=== PATIENT | male | born 1995 | race Caucasian/White ===

== ENCOUNTER 2021-09-08 08:00 | Observation (INO) ==
[2021-09-08 08:18] VITALS: BMI 34.8
--- NOTE | 2021-09-08 08:57 | DR.ABDMALE ---
HPI Time seen Time Seen by Provider: 09/08/21 08:46 PCP Primary Care Physician: Shu HPI comment HPI Comment: Acccording to pt he was well before yesterday .Experienced feeling of bloating with discomfort .gradual in onset and has persisted since then .Has had loose stools associated with it without watery or bloody stools stools .Has not eaten anything unusal .No one at home with similar symptoms.Had similar problem over 2 weks ago got better on its own .Here to have himself checked .When stands and walk ,experiences pain in the lower belly Complaint Chief Complaint Doctors Comments: abdominal pain Chief Complaint:: Pt c/o ruq abd pain since yesterday. He reports three episodes of diarrhea this am. Pt states pain worsens with eating. He reports loose stool for an extended period of time. COVID-19 Coronavirus risk:travel/contact w/high risk person: No Has patient experienced Coronavirus symptoms: No Reviewed Nurses Notes Review: Yes Mode of arrival Mode of Arrival: Ambulatory Timing Onset of Chief Complaint: 09/07/21 Came on: Gradually Location Location: RUQ Severity Severity: Moderate Quality Quality: Other (bloated feeling ) Context History of: None Modifying factors Worsening Factors: Position Improving Factors: Nothing Associated signs and symptoms Associated Signs and Symptoms: Diarrhea PMH PMH Past Medical History: No Past Medical History: Hypertension Past Surgical History: Yes Surgical History: Ortho Surgery Past Surgical History Comment: hernia repair Family History History of Family Medical Conditions: Yes Family Medical History: Diabetes Mellitus and Hypertension Social History Does patient currently use any type of tobacco product: No Have you used tobacco products in the last 12 months: No Type of Tobacco Use: None Does any household member use tobacco: No Alcohol Use: None Do you use any recreational Drugs:: No Lives With: Family Lives Where: Home Travel Risk Coronavirus risk:travel/contact w/high risk person: No Has patient experienced Coronavirus symptoms: No Infectious screening In the last 2 months have you had wt loss of >10#?: NO Have you had fever, night sweats or hemotysis?: No Have you traveled outside the country in the last 6 months?: No Isolation: Standard ROS Review of Systems Constitutional: No Symptoms Reported Eyes: No Symptoms Reported ENTM: No Symptoms Reported Respiratoy: No Symptoms Reported Cardiovascular: No Symptoms Reported Gastrointestinal/Abdominal: See HPI Genitourinary: No Symptoms Reported Neurological: No Symptoms Reported Musculoskeletal: No Symptoms Reported PE Vital Signs Vital Signs: Temp Pulse Resp BP BP Pulse Ox 09/08/21 10:42 16 09/08/21 08:14 97.0 F L 87 18 130/83 97 12/19/17 13:53 148/80 148/80 Head Head Exam: Normal Inspection, Atraumatic and Normocephalic Eyes Eye exam: Normal Appearance, PERRL and EOMI ENT ENT Exam: Normal Oropharynx and Mucous Membranes Moist Neck Neck Exam: Normal Inspection and Full ROM Chest Chest Inspection: Normal Inspection and Symmetric Chest Wall Rise Respiratory Respiratory Exam: Normal Lung Sounds Bilat Respiratory Exam: Bilateral: Clear to Auscultation Cardiovascular Cardiovascular Exam: +S1 and +S2 Abdominal Exam Abdominal Exam: Soft and Tenderness Abdominal Tenderness: RUQ, RLQ and Other (robsing pos but uncomfortable feeling on palpation RUQ.Burnham sign neg) MDM Differential Diagnosis Differential Diagnosis: Appendicitis, Cholcystitis, Cholelethiasis, Constipation, Gastroenteritis and Urolithiasis COURSE Treatment Treatment: cbc,cmp,u/a CTabdomen and pelvids with IV contrast ROR Labs Reviewed Laboratory Results Reviewed?: Yes Result Diagrams: 09/08/21 08:39 09/08/21 08:39 Laboratory: WBC 11.0 X10^3/uL (3.6-10.0) H 09/08/21 08:39 RBC 4.90 X10^6/uL (4.7-6.0) 09/08/21 08:39 Hgb 14.7 g/dL (13.5-18.0) 09/08/21 08:39 Hct 42.7 % (42.0-54.0) 09/08/21 08:39 MCV 87.1 fL (80.0-100.0) 09/08/21 08:39 MCH 29.9 pg (27.0-34.0) 09/08/21 08:39 MCHC 34.3 g/dL (33.0-35.0) 09/08/21 08:39 RDW 13.6 % (11.6-16.5) 09/08/21 08:39 Plt Count 267 X10^3/uL (150.0-450.0) 09/08/21 08:39 MPV 8.7 fL (7.4-11.0) 09/08/21 08:39 Neut % (Auto) 76.2 % (42.0-75.0) H 09/08/21 08:39 Lymph % (Auto) 14.6 % (21.0-51.0) L 09/08/21 08:39 [place] % (Auto) 7.4 % (0.0-13.0) 09/08/21 08:39 Eos % (Auto) 1.1 % (0.9-2.9) 09/08/21 08:39 Baso % (Auto) 0.7 % (0.2-1.0) 09/08/21 08:39 Neut # (Auto) 8.4 x10^3/uL (2.2-4.8) H 09/08/21 08:39 Lymph # (Auto) 1.6 X10^3/uL (1.3-2.9) 09/08/21 08:39 [place] # (Auto) 0.8 x10^3/uL (0.3-0.8) 09/08/21 08:39 Eos # (Auto) 0.1 x10^3/uL (0.0-0.2) 09/08/21 08:39 Baso # (Auto) 0.1 X10^3/uL (0.0-0.1) 09/08/21 08:39 Absolute Nucleated RBC 0.0 /100WBC 09/08/21 08:39 Sodium 140 mmol/L (136-145) 09/08/21 08:39 Corrected Sodium TNP 09/08/21 08:39 Potassium 4.4 mmol/L (3.5-5.1) 09/08/21 08:39 Chloride 104 mmol/L (98-107) 09/08/21 08:39 Carbon Dioxide 28.3 mmol/L (21-32) 09/08/21 08:39 BUN 14 mg/dL (7-18) 09/08/21 08:39 Creatinine 0.87 mg/dL (0.70-1.30) 09/08/21 08:39 Est GFR (MDRD) Af Amer > 60 (>60) 09/08/21 08:39 Est GFR (MDRD) Non-Af > 60 (>60) 09/08/21 08:39 Glucose 99 mg/dL (65-99) 09/08/21 08:39 Calcium 8.8 mg/dL (8.5-10.1) 09/08/21 08:39 Corrected Calcium TNP 09/08/21 08:39 Total Bilirubin 0.60 mg/dL (0.2-1.0) 09/08/21 08:39 AST 24 Units/L (15-37) 09/08/21 08:39 ALT 56 Units/L (12-78) 09/08/21 08:39 Alkaline Phosphatase 80 Units/L (46-116) 09/08/21 08:39 Total Protein 7.5 g/dL (6.4-8.2) 09/08/21 08:39 Albumin 4.0 g/dL (3.4-5.0) 09/08/21 08:39 Globulin 3.5 g/dL (2.5-4.5) 09/08/21 08:39 Albumin/Globulin Ratio 1.1 Ratio (1.1-2.1) 09/08/21 08:39 Specimen Type Clean catch urine 09/08/21 08:29 Urine Color Straw (YELLOW) 09/08/21 08:29 Urine Appearance Clear (CLEAR) 09/08/21 08:29 Urine pH 7.0 (5.0 - 8.0) 09/08/21 08:29 Ur Specific [place] 1.010 (1.000-1.030) 09/08/21 08:29 Urine Protein Negative (NEGATIVE) 09/08/21 08:29 Urine Glucose (UA) Negative (NEGATIVE) 09/08/21 08:29 Urine Ketones Negative (NEGATIVE) 09/08/21 08:29 Urine Occult Blood Negative (NEGATIVE) 09/08/21 08:29 Urine Nitrite Negative (NEGATIVE) 09/08/21 08:29 Urine Bilirubin Negative (NEGATIVE) 09/08/21 08:29 Urine Urobilinogen Normal (NORMAL) 09/08/21 08:29 Ur Leukocyte Esterase Negative (NEGATIVE) 09/08/21 08:29 Opioid Opioid Risk Tool Age (Usman box if 16-45): Yes History of Preadolescent Sexual Abuse: No Total: 1 Total Score Risk Category: Low Risk Copyright: [employer] HAIR predicting aberrant behaviors Diagnosis Discharge Problem: Elevated WBC count Appendicitis Qualifiers: Appendicitis type: acute appendicitis Appendicitis gangrene presence: without gangrene Appendicitis perforation presence: without perforation Instructions Forms: Precautions for COVID19 [facility] Patient Portal Social Distancing ADDITIONAL NOTES Additional Notes Additional Notes: spoke with Dr Mccracken to discuss labs and CT of abdomen and pelvis which may be early sign of retrocecal appendicitis.Agreed to admit patient
[2021-09-08 08:58] LABS: BILIRUBIN,URINE NEGATIVE (NEGATIVE); BLOOD/HEMOGLOBIN,URINE NEGATIVE (NEGATIVE); GLUCOSE, URINE NEGATIVE (NEGATIVE); KETONES,URINE NEGATIVE (NEGATIVE); LEUKOCYTE ESTERASE ,URINE NEGATIVE (NEGATIVE); NITRITES,URINE NEGATIVE (NEGATIVE); PROTEIN,URINE NEGATIVE (NEGATIVE); UROBILINOGEN,URINE NORMAL (NORMAL)
[2021-09-08 08:58] LABS: BASOPHILS # (AUTO) 0.1 X10^3/uL (0.0-0.1); BASOPHILS % (AUTO) 0.7 % (0.2-1.0); EOSINOPHILS # (AUTO) 0.1 x10^3/uL (0.0-0.2); EOSINOPHILS % (AUTO) 1.1 % (0.9-2.9); HEMATOCRIT 42.7 % (42.0-54.0); HEMOGLOBIN 14.7 g/dL (13.5-18.0); LYMPHOCYTES # (AUTO) 1.6 X10^3/uL (1.3-2.9); LYMPHOCYTES % (AUTO) 14.6 % (21.0-51.0); MEAN CORPUSCULAR HEMOGLOBIN 29.9 pg (27.0-34.0); MEAN CORPUSCULAR HGB CONC 34.3 g/dL (33.0-35.0); MEAN CORPUSCULAR VOLUME 87.1 fL (80.0-100.0); MEAN PLATELET VOLUME 8.7 fL (7.4-11.0); MONOCYTES # (AUTO) 0.8 x10^3/uL (0.3-0.8); MONOCYTES % (AUTO) 7.4 % (0.0-13.0); NEUTROPHILS # (AUTO) 8.4 x10^3/uL (2.2-4.8); NEUTROPHILS % (AUTO) 76.2 % (42.0-75.0); RED CELL DISTRIBUTION WIDTH 13.6 % (11.6-16.5)
[2021-09-08 09:05] LABS: APPEARANCE,URINE CLEAR (CLEAR); COLOR,URINE STRAW (YELLOW)
[2021-09-08 09:05] LABS: ALANINE AMINOTRANSFERASE 56 Units/L (12-78); ALKALINE PHOSPHATASE 80 Units/L (46-116); ASPARTATE AMINO TRANSFERASE 24 Units/L (15-37); BLOOD UREA NITROGEN 14 mg/dL (7-18); CALCIUM 8.8 mg/dL (8.5-10.1); CARBON DIOXIDE 28.3 mmol/L (21-32); CHLORIDE 104 mmol/L (98-107); CREATININE 0.87 mg/dL (0.70-1.30); SODIUM 140 mmol/L (136-145); TOTAL PROTEIN 7.5 g/dL (6.4-8.2); eGFR NON BLACK RACES > 60 (>60)
[2021-09-08] MEDS ORDERED: NS 100 ML IV 100 ML ONE ×2 (09:06→15:08)
--- NOTE | 2021-09-08 10:17 | CT ---
HISTORYPt c/o ruq abd pain since yesterday. He reports three episodes of diarrhea this am. Pt states pain worsens with eating. He reports loose stool for an extended period of timeSTUDYABDOMEN/PELVIS WITH CONCOMPARISONNoneTECHNIQUEMultiple axial images of the abdomen and pelvis were obtained from the lung bases to the pubic symphysis after the administration of IV contrast. Dose reduction techniques including Automated Exposure Control (AEC) and adjustment of mA and kV were utilized.FINDINGSIncluded lung bases show scattered atelectasis. Liver, gallbladder, spleen, kidneys, adrenal glands, pancreas unremarkable. There is focal wall thickening of the ascending colon with adjacent omental fat stranding without loculated fluid collection or free air. Retrocecal appendix mildly prominent but not fluid distended. Small amount of pelvic ascites. Urinary bladder grossly unremarkable. No visible lymphadenopathy or pneumoperitoneum. No acute osseous finding.IMPRESSIONShort-segment inflammatory change of the cecum with adjacent omental fat stranding could be inflammatory or infectious. The appendix appears mildly prominent which may be reactive. Short interval follow-up CT could be considered. Follow-up colonoscopy suggested to evaluate the cecum. Small amount of pelvic ascites probably reactive.Electronically signed by: Jasbir Moran (Sep 08, 2021 10:16:18)
[2021-09-08] MEDS ORDERED: TORADOL 60 MG VIAL IM ONE (10:31)
[2021-09-08] MEDS ORDERED: TORADOL 60 MG VIAL ONE (10:35)
[2021-09-08] MEDS ORDERED: ZOFRAN INJ 4 MG VIAL IVP PRN ×3 (10:43→20:19)
--- NOTE | 2021-09-08 14:47 | DR.H&P ---
H&P History & Physical for Day of: H&P Date: 09/08/21 Chief Complaint Chief Complaint: 26 year old male with onset of right lower quadrant pain last night which has gotten worse. This was preceded by some anorexia and some nausea. No vomiting. He has complained of loose stool but has had stool for over a year. Evaluated in the [place] [address] scan done just with IV contrast showed information of possibly the cecum. Appendix not visualized well but probably retrocecal. Possibilities include acute appendicitis , Inflammatory bowel disease, possible infectious etiology etiology. Allergies Allergies Allergy/AdvReac Type Severity Reaction Status Date / Time No Known Drug Allergies Allergy Verified 12/19/17 11:34 History of Present Illness History of Present Illness: see above. Past Medical History Past Medical History: Hypertension Past Surgical History Surgical History: Other (Left inguinal hernia repair as a child ) Family History Family Medical History: Diabetes Mellitus, Cancer, [place], Coronary Artery Disease, Heart Failure and Hypertension Social History Does patient currently use any type of tobacco product: No Have you used tobacco products in the last 12 months: No Type of Tobacco Use: Smokeless How many years tobacco product used: 7 Does any household member use tobacco: No Alcohol Use: Rarely Drug Use: None Prescription drug monitoring program results: PDMP reviewed and no concerns identified Medications Home Medications: No Known Drug Allergies Allergy (Verified 12/19/17 11:34) CONTINUE taking the following medications dextroamphetamine-amphetamine 30 mg PO BID 09/08/21 [History] Labs Result Diagrams: 09/08/21 08:39 09/08/21 08:39 Labs: Laboratory WBC 11.0 X10^3/uL (3.6-10.0) H 09/08/21 08:39 RBC 4.90 X10^6/uL (4.7-6.0) 09/08/21 08:39 Hgb 14.7 g/dL (13.5-18.0) 09/08/21 08:39 Hct 42.7 % (42.0-54.0) 09/08/21 08:39 MCV 87.1 fL (80.0-100.0) 09/08/21 08:39 MCH 29.9 pg (27.0-34.0) 09/08/21 08:39 MCHC 34.3 g/dL (33.0-35.0) 09/08/21 08:39 RDW 13.6 % (11.6-16.5) 09/08/21 08:39 Plt Count 267 X10^3/uL (150.0-450.0) 09/08/21 08:39 MPV 8.7 fL (7.4-11.0) 09/08/21 08:39 Neut % (Auto) 76.2 % (42.0-75.0) H 09/08/21 08:39 Lymph % (Auto) 14.6 % (21.0-51.0) L 09/08/21 08:39 [place] % (Auto) 7.4 % (0.0-13.0) 09/08/21 08:39 Eos % (Auto) 1.1 % (0.9-2.9) 09/08/21 08:39 Baso % (Auto) 0.7 % (0.2-1.0) 09/08/21 08:39 Neut # (Auto) 8.4 x10^3/uL (2.2-4.8) H 09/08/21 08:39 Lymph # (Auto) 1.6 X10^3/uL (1.3-2.9) 09/08/21 08:39 [place]od # (Auto) 0.8 x10^3/uL (0.3-0.8) 09/08/21 08:39 Eos # (Auto) 0.1 x10^3/uL (0.0-0.2) 09/08/21 08:39 Baso # (Auto) 0.1 X10^3/uL (0.0-0.1) 09/08/21 08:39 Absolute Nucleated RBC 0.0 /100WBC 09/08/21 08:39 Sodium 140 mmol/L (136-145) 09/08/21 08:39 Corrected Sodium TNP 09/08/21 08:39 Potassium 4.4 mmol/L (3.5-5.1) 09/08/21 08:39 Chloride 104 mmol/L (98-107) 09/08/21 08:39 Carbon Dioxide 28.3 mmol/L (21-32) 09/08/21 08:39 BUN 14 mg/dL (7-18) 09/08/21 08:39 Creatinine 0.87 mg/dL (0.70-1.30) 09/08/21 08:39 Est GFR (MDRD) Af Amer > 60 (>60) 09/08/21 08:39 Est GFR (MDRD) Non-Af > 60 (>60) 09/08/21 08:39 Glucose 99 mg/dL (65-99) 09/08/21 08:39 Calcium 8.8 mg/dL (8.5-10.1) 09/08/21 08:39 Corrected Calcium TNP 09/08/21 08:39 Total Bilirubin 0.60 mg/dL (0.2-1.0) 09/08/21 08:39 AST 24 Units/L (15-37) 09/08/21 08:39 ALT 56 Units/L (12-78) 09/08/21 08:39 Alkaline Phosphatase 80 Units/L (46-116) 09/08/21 08:39 Total Protein 7.5 g/dL (6.4-8.2) 09/08/21 08:39 Albumin 4.0 g/dL (3.4-5.0) 09/08/21 08:39 Globulin 3.5 g/dL (2.5-4.5) 09/08/21 08:39 Albumin/Globulin Ratio 1.1 Ratio (1.1-2.1) 09/08/21 08:39 Specimen Type Clean catch urine 09/08/21 08:29 Urine Color Straw (YELLOW) 09/08/21 08:29 Urine Appearance Clear (CLEAR) 09/08/21 08:29 Urine pH 7.0 (5.0 - 8.0) 09/08/21 08:29 Ur Specific [place] 1.010 (1.000-1.030) 09/08/21 08:29 Urine Protein Negative (NEGATIVE) 09/08/21 08:29 Urine Glucose (UA) Negative (NEGATIVE) 09/08/21 08:29 Urine Ketones Negative (NEGATIVE) 09/08/21 08:29 Urine Occult Blood Negative (NEGATIVE) 09/08/21 08:29 Urine Nitrite Negative (NEGATIVE) 09/08/21 08:29 Urine Bilirubin Negative (NEGATIVE) 09/08/21 08:29 Urine Urobilinogen Normal (NORMAL) 09/08/21 08:29 Ur Leukocyte Esterase Negative (NEGATIVE) 09/08/21 08:29 SARS CoV-2 RNA Rapid XI Negative (NEGATIVE) 09/08/21 10:35 Review of Systems Constitutional: See HPI Eyes: No Symptoms Reported ENT: No Symptoms Reported Respiratory: No Symptoms Reported Cardiovascular: No Symptoms Reported Gastrointestinal: No Symptoms Reported Genitourinary: No Symptoms Reported Musculoskeletal: No Symptoms Reported Skin: No Symptoms Reported Neurological: No Symptoms Reported Physical Exam Vital Signs: Temperature 97.6 F Pulse Rate [Left Radial] 51 Pulse Rate 87 Respiratory Rate 20 Blood Pressure [Left Arm] 137/86 Blood Pressure 130/83 O2 Sat by Pulse Oximetry 97 Oriented: Normal, Time, Person, Place and Not Oriented Eyes: Normal Ear: Normal Nose: Normal Throat: Normal Respiratory: Clear Throughout Cardiovascular: Normal : Normal Auscultation: Bowel Sounds: Increased Palpation: Normal Tenderness: RLQ (mild rebound noted. Has referred pain ) Skin: Normal Musculoskeletal: Normal Psychiatric: Normal Mood Description: Calm Affect: Normal Speech Pattern: Clear Assessment/Plan (1) Right lower quadrant pain: Status: Acute Plan: Differential diagnosis includes appendicitis. The patient was not given oral contrast. This could represent inflammatory bowel disease although there is no family history of inflammatory bowel disease. Infectious etiology is less likely. I have givene him the options of exploratory laparoscopy and possible laparoscopic appendectomy. If I discover there is not appendicitis most likely will be treated with IV antibiotics and possible steroids. Could consider treatment with antibiotics , +/- steroids. Could consider interval CT scan Patient would like to proceed with laparoscopy which I think is prudent and will help plan his further treatment.
[2021-09-08] MEDS ORDERED: NS 1,000 ML IV 1,000 ML ONE (15:08)
[2021-09-08] MEDS ORDERED: MARCAINE/EPINEPHRINE ONE (15:08)
[2021-09-08] MEDS ORDERED: ANCEF VIAL 1 GRAM ONE (15:08)
[2021-09-08] MEDS ORDERED: FENTANYL VIAL INJ 250 mcg ONE (15:36)
[2021-09-08] MEDS ORDERED: VERSED ONE (15:36)
[2021-09-08] MEDS ORDERED: QUELICIN (OR ANECTINE) ONE (15:39)
[2021-09-08] MEDS ORDERED: ZEMURON 100 MG VIAL ONE (15:39)
[2021-09-08] MEDS ORDERED: ZOFRAN INJ 4 MG VIAL ONE (15:39)
[2021-09-08] MEDS ORDERED: BRIDION ONE (15:39)
[2021-09-08] MEDS ORDERED: DIPRIVAN VIAL 20 ML ONE (15:39)
[2021-09-08] MEDS ORDERED: SUPRANE ONE (15:42)
[2021-09-08] MEDS ORDERED: REGLAN INJ 10 MG VIAL IVP PRN (16:27)
[2021-09-08] MEDS ORDERED: BENADRYL INJ 50 MG VIAL IVP PRN (16:27)
[2021-09-08] MEDS ORDERED: BARHEMSYS INJ IVP PRN (16:27)
[2021-09-08] MEDS ORDERED: PHENERGAN INJ 25 MG IM PRN (16:27)
[2021-09-08] MEDS ORDERED: DILAUDID INJ ONE ×4 (16:28→17:00)
[2021-09-08] MEDS: DILAUDID INJ IVP PRN ×6 (16:28→23:16)
--- NOTE | 2021-09-08 16:32 | OR.IMMED ---
IMMEDIATE POST-OP NOTE Immediate Post-Op Note Pre-Op Diagnosis: right lower quadrant pain and tenderness. Post-Op Diagnosis: Normal appendix with evidence of possible inflammation of the terminal ileum. Procedure: Exploratory laparoscopy and laparoscopic appendectomy Description of Procedure: see operative note Surgeon/Director Global: Nawaf Findings: normal appearing appendix. Cecum ht mid abdomen. Possible mild inflammation of the terminal ileum versus adhesions Specimens Removed: appendix Estimated Blood Loss: minimal Drains: NONE Complications: none Discharge Progress Notes: patient to return to the floor and continued IV fluids and begin Diet. Start Solu-Medrol 80 mg to 12 hours Final Diagnosis: right lower quadrant pain and tenderness
[2021-09-08] MEDS: LR 1,000 ML IV 1,000 ML IV SCH (18:33)
[2021-09-08] MEDS ORDERED: SOLU-Medrol 125 MG VIAL ONE (19:35)
[2021-09-08] MEDS: SOLU-Medrol 125 MG VIAL IVP SCH (21:16)
[2021-09-08] MEDS: PERCOCET TAB 5/325 MG PO PRN (21:29)
--- NOTE | 2021-09-08 22:00 | DR.OPNOTE ---
OP NOTE Pre-Op Diagnosis: Right lower quadrant pain, abnormal CT scan Post-Op Diagnosis: Clinica normal appendix, ?Regional enteritis of the ileum versus adhesions Procedure Date Date Of Procedure: 09/08/21 Procedure: PROCEDURE : Exploratory laparoscopy, laparoscopic appendectomy NARRATIVE: The patient was taken to the operative suite and placed in the Supine position. The entire abdomen was prepped and draped in sterile fashion. 5 mm incision made lateral to the left rectus sheath online with the umbilicus and a 5 mm Optical trocar used to enter the abdominal cavity. The abdomen insufflated to 15 mm of mercury with carbon dioxide. Under direct Vision a 5 mm trocar placed in the midline above the pubic tubercles and a 12 mm trocar placed in the left lower quadrant. The appendix was seen in the right mid abdomen as the cecum was high. It appeared to be clinically normal. There was some omentum which which was possibly mildly inflamed and adhesions to the abdominal wall with no evidence obstruction. The base of the appendix and it's mesentery were divided with two fires of the endoscopic stapler. The appendix placed in a specimen bag and brought out through the left lower quadrant trocar site. No active bleeding Also trocars removed. All incisions closed with 3-0 Vicryl subcutaneous sutures and the skin closed with steri-strips. A total of 20 CC of 0. 5% Marcaine was distributed between the three laparoscopic incisions. Patient extubated and taken to the recovery room in good condition. Type of Anesthesia: Local (20 cc of 0.5% Marcaine) and General Anesthetic w/ETT Findings: CT scan consistent with possible inflammation of the cecum, appendix did not fill and was retrocecal. Findings surgery were a clinically normal appendix in the retrocecal area with the cecum in the mid right abdomen. Ileum with adhesions to the abdominal wall with no obstruction . Possible early inflammation versus adhesions . Patient will need f/u colonoscopy is the near future to see if evidence of inflammatory bowel exists. Specimen/Pathology: appendix, await final pathology Type of Fluids Used:: Lactated Ringers EBL: minimal Drains/Tubes Placed: None Complications:: none Needle/Sponge Count:: correct Disposition/Condition: Pt. tolerated procedure without difficulty. Extubated in the OR and taken to PACU in stable condition.
[2021-09-09] MEDS: LR 1,000 ML IV 1,000 ML IV SCH ×2 (05:19→19:02)
[2021-09-09 06:17] LABS: BASOPHILS % (AUTO) 0.2 % (0.2-1.0); HEMATOCRIT 38.5 % (42.0-54.0); HEMOGLOBIN 13.2 g/dL (13.5-18.0); LYMPHOCYTES # (AUTO) 0.6 X10^3/uL (1.3-2.9); LYMPHOCYTES % (AUTO) 6.6 % (21.0-51.0); MEAN CORPUSCULAR HEMOGLOBIN 29.7 pg (27.0-34.0); MEAN CORPUSCULAR HGB CONC 34.3 g/dL (33.0-35.0); MEAN CORPUSCULAR VOLUME 86.5 fL (80.0-100.0); MEAN PLATELET VOLUME 9.1 fL (7.4-11.0); MONOCYTES # (AUTO) 0.2 x10^3/uL (0.3-0.8); MONOCYTES % (AUTO) 2.3 % (0.0-13.0); NEUTROPHILS # (AUTO) 7.9 x10^3/uL (2.2-4.8); NEUTROPHILS % (AUTO) 90.9 % (42.0-75.0); RED BLOOD COUNT 4.46 X10^6/uL (4.7-6.0); RED CELL DISTRIBUTION WIDTH 13.4 % (11.6-16.5); WHITE BLOOD COUNT 8.7 X10^3/uL (3.6-10.0)
[2021-09-09 07:33] LABS: PLATELET MORPHOLOGY COMMENT NORMAL (NORMAL)
[2021-09-09] MEDS: PERCOCET TAB 5/325 MG PO PRN ×3 (07:57→23:58)
[2021-09-09] MEDS: SOLU-Medrol 125 MG VIAL IVP SCH (10:06)
[2021-09-09] MEDS: LOVENOX INJ 40 MG SYR SC SCH (10:07)
[2021-09-09] MEDS: PROTONIX TAB 40 MG PO SCH (10:07)
[2021-09-09] MEDS: DILAUDID INJ IVP PRN ×3 (10:15→16:58)
--- NOTE | 2021-09-09 19:12 | NOTE.SOAP ---
Soap Note Note for Day of Date of Exam: 09/09/21 Subjective Data Subjective Data: POD #1 after laparoscopic appendectomy. Possible regional enteritis . Feels better and c/o some righ sided abdomen when he gets up. Objective Data Temperature: 98.5 F Pulse Rate: 52 Respiratory Rate: 20 Blood Pressure: 148/88 O2 Sat by Pulse Oximetry: 96 Assessment Assessment: Incisional tenderness only. Plan Plan: D/C Solu-medrol and start po Prednisone . Hopefully discharge home tomorrow.
[2021-09-10] MEDS: LR 1,000 ML IV 1,000 ML IV SCH (08:58)
[2021-09-10] MEDS: PROTONIX TAB 40 MG PO SCH (08:58)
[2021-09-10] MEDS: LOVENOX INJ 40 MG SYR SC SCH (08:58)
[2021-09-10] MEDS ORDERED: PREDNISONE TAB 20 MG PO SCH (09:00)
[2021-09-10] MEDS: PERCOCET TAB 5/325 MG PO PRN (09:14)
--- NOTE | 2021-09-10 12:16 | W.DIS.FURT ---
Summary of Discharge Discharge Summary of Date Date of Exam: 09/10/21 Admission Date Date of Admission: 09/08/21 Admission Diagnosis Patient Problems (Updated 09/08/21 @ 14:36 by Yadiel Mccracken) Appendicitis (Acute) K37 Elevated WBC count (Acute) D72.829 Hospital Course: 26 year old male who was otherwise healthy presented with right mid abdominal pain with loose stool. CT scan consistent with possible appendicitis versus inflammatory bowel disease. Exploratory laparoscopy rebuilding clinically normal appendix with probable inflammation of the terminal ileum. No evidence of obstruction. Patient was continued on IV Solu-Medrol and fluids and transitioned to PO prednisone .He will be discharged on Prednisone 40 mg today and I will see you in one week and begin to step down the dosage. He also will be given prescription for Percocet 5 mg tablets, 1 every 6 hours PRN pain , #20 .he will follow up with me in the office in one week . Vital Signs: Vital Signs (72 hours) 09/08/21 08:14 09/08/21 10:42 09/08/21 10:44 Temperature 97.0 F L 98.5 F Pulse Rate 87 Pulse Rate [Left Radial] 51 L Respiratory Rate 18 16 20 Blood Pressure 130/83 Blood Pressure [Left Arm] 125/56 O2 Sat by Pulse Oximetry 97 99 09/08/21 12:00 09/08/21 16:23 09/08/21 16:28 Temperature 97.6 F 97.1 F L Pulse Rate 54 L 51 L Pulse Rate [Left Radial] Respiratory Rate 20 18 18 Blood Pressure 216/124 219/132 Blood Pressure [Left Arm] 137/86 O2 Sat by Pulse Oximetry 97 100 100 09/08/21 16:33 09/08/21 16:38 09/08/21 16:43 Temperature Pulse Rate 71 71 59 L Pulse Rate [Left Radial] Respiratory Rate 18 18 18 Blood Pressure 229/121 220/106 206/107 Blood Pressure [Left Arm] O2 Sat by Pulse Oximetry 100 100 99 09/08/21 16:48 09/08/21 16:53 09/08/21 16:58 Temperature Pulse Rate 59 L 62 54 L Pulse Rate [Left Radial] Respiratory Rate 18 18 18 Blood Pressure 184/108 177/110 163/84 Blood Pressure [Left Arm] O2 Sat by Pulse Oximetry 99 99 99 09/08/21 17:00 09/08/21 17:13 09/08/21 17:40 Temperature 97.9 F Pulse Rate Pulse Rate [Left Radial] 50 L Respiratory Rate 18 18 18 Blood Pressure Blood Pressure [Left Arm] 142/76 O2 Sat by Pulse Oximetry 95 09/08/21 17:45 09/08/21 18:00 09/08/21 18:15 Temperature 98.1 F 97.8 F 97.8 F Pulse Rate Pulse Rate [Left Radial] 53 L 45 L 44 L Respiratory Rate 18 20 20 Blood Pressure Blood Pressure [Left Arm] 143/88 150/62 151/69 O2 Sat by Pulse Oximetry 94 L 96 95 09/08/21 19:15 09/08/21 20:11 09/08/21 20:29 Temperature 97.8 F 97.8 F Pulse Rate Pulse Rate [Left Radial] 47 L 48 L Respiratory Rate 20 20 20 Blood Pressure Blood Pressure [Left Arm] 139/82 132/65 O2 Sat by Pulse Oximetry 96 97 09/08/21 20:59 09/08/21 21:15 09/08/21 21:29 Temperature 97.8 F Pulse Rate Pulse Rate [Left Radial] 47 L Respiratory Rate 20 20 20 Blood Pressure Blood Pressure [Left Arm] 121/68 O2 Sat by Pulse Oximetry 96 09/08/21 22:15 09/08/21 22:29 09/08/21 23:16 Temperature 97.5 F L Pulse Rate Pulse Rate [Left Radial] 46 L Respiratory Rate 20 20 20 Blood Pressure Blood Pressure [Left Arm] 124/67 O2 Sat by Pulse Oximetry 97 09/08/21 23:46 09/09/21 04:00 09/09/21 07:57 Temperature 97.6 F 98.3 F Pulse Rate Pulse Rate [Left Radial] 49 L 44 L Respiratory Rate 20 20 20 Blood Pressure Blood Pressure [Left Arm] 126/56 115/52 O2 Sat by Pulse Oximetry 99 99 09/09/21 08:00 09/09/21 08:57 09/09/21 10:15 Temperature 97.6 F Pulse Rate Pulse Rate [Left Radial] 50 L Respiratory Rate 20 20 Blood Pressure Blood Pressure [Left Arm] 128/79 O2 Sat by Pulse Oximetry 96 09/09/21 10:45 09/09/21 12:00 09/09/21 12:26 Temperature 97.3 F L Pulse Rate Pulse Rate [Left Radial] 51 L Respiratory Rate 20 24 18 Blood Pressure Blood Pressure [Left Arm] 157/96 O2 Sat by Pulse Oximetry 99 09/09/21 12:56 09/09/21 16:00 09/09/21 16:58 Temperature 98.5 F Pulse Rate Pulse Rate [Left Radial] 52 L Respiratory Rate 20 20 20 Blood Pressure Blood Pressure [Left Arm] 148/88 O2 Sat by Pulse Oximetry 96 09/09/21 17:28 09/09/21 19:12 09/09/21 20:00 Temperature 98.5 F 98.4 F Pulse Rate 52 L Pulse Rate [Left Radial] 53 L Respiratory Rate 20 20 20 Blood Pressure 148/88 Blood Pressure [Left Arm] 155/86 O2 Sat by Pulse Oximetry 96 99 09/09/21 20:11 09/09/21 21:11 09/09/21 23:58 Temperature Pulse Rate Pulse Rate [Left Radial] Respiratory Rate 20 20 20 Blood Pressure Blood Pressure [Left Arm] O2 Sat by Pulse Oximetry 09/10/21 00:00 09/10/21 00:58 09/10/21 04:00 Temperature 98.6 F 98.3 F Pulse Rate Pulse Rate [Left Radial] 55 L 48 L Respiratory Rate 20 20 20 Blood Pressure Blood Pressure [Left Arm] 146/91 142/71 O2 Sat by Pulse Oximetry 98 96 09/10/21 08:00 09/10/21 09:14 09/10/21 10:14 Temperature 98.4 F Pulse Rate Pulse Rate [Left Radial] 63 Respiratory Rate 20 18 18 Blood Pressure Blood Pressure [Left Arm] 135/96 O2 Sat by Pulse Oximetry 99 Labs: Laboratory Last Values WBC 8.7 X10^3/uL (3.6-10.0) 09/09/21 05:49 RBC 4.46 X10^6/uL (4.7-6.0) L 09/09/21 05:49 Hgb 13.2 g/dL (13.5-18.0) L 09/09/21 05:49 Hct 38.5 % (42.0-54.0) L 09/09/21 05:49 MCV 86.5 fL (80.0-100.0) 09/09/21 05:49 MCH 29.7 pg (27.0-34.0) 09/09/21 05:49 MCHC 34.3 g/dL (33.0-35.0) 09/09/21 05:49 RDW 13.4 % (11.6-16.5) 09/09/21 05:49 Plt Count 255 X10^3/uL (150.0-450.0) 09/09/21 05:49 Plt Count Comment Adequate (ADEQUATE) 09/09/21 05:49 MPV 9.1 fL (7.4-11.0) 09/09/21 05:49 Neut % (Auto) 90.9 % (42.0-75.0) H 09/09/21 05:49 Lymph % (Auto) 6.6 % (21.0-51.0) L 09/09/21 05:49 [place] % (Auto) 2.3 % (0.0-13.0) 09/09/21 05:49 Eos % (Auto) 0.0 % (0.9-2.9) L 09/09/21 05:49 Baso % (Auto) 0.2 % (0.2-1.0) 09/09/21 05:49 Neut # (Auto) 7.9 x10^3/uL (2.2-4.8) H 09/09/21 05:49 Lymph # (Auto) 0.6 X10^3/uL (1.3-2.9) L 09/09/21 05:49 [place] # (Auto) 0.2 x10^3/uL (0.3-0.8) L 09/09/21 05:49 Eos # (Auto) 0.0 x10^3/uL (0.0-0.2) 09/09/21 05:49 Baso # (Auto) 0.0 X10^3/uL (0.0-0.1) 09/09/21 05:49 Absolute Nucleated RBC 0.0 /100WBC 09/09/21 05:49 Total Counted 100 09/09/21 05:49 Neutrophils % (Manual) 92 % (39-76) H 09/09/21 05:49 Lymphocytes % (Manual) 6 % (13-43) L 09/09/21 05:49 Monocytes % (Manual) 2 % (4-9) L 09/09/21 05:49 Plt Morphology Comment Normal (NORMAL) 09/09/21 05:49 RBC Morphology Normal (NORMAL) 09/09/21 05:49 Sodium 140 mmol/L (136-145) 09/08/21 08:39 Corrected Sodium TNP 09/08/21 08:39 Potassium 4.4 mmol/L (3.5-5.1) 09/08/21 08:39 Chloride 104 mmol/L (98-107) 09/08/21 08:39 Carbon Dioxide 28.3 mmol/L (21-32) 09/08/21 08:39 BUN 14 mg/dL (7-18) 09/08/21 08:39 Creatinine 0.87 mg/dL (0.70-1.30) 09/08/21 08:39 Est GFR (MDRD) Af Amer > 60 (>60) 09/08/21 08:39 Est GFR (MDRD) Non-Af > 60 (>60) 09/08/21 08:39 Glucose 99 mg/dL (65-99) 09/08/21 08:39 Calcium 8.8 mg/dL (8.5-10.1) 09/08/21 08:39 Corrected Calcium TNP 09/08/21 08:39 Total Bilirubin 0.60 mg/dL (0.2-1.0) 09/08/21 08:39 AST 24 Units/L (15-37) 09/08/21 08:39 ALT 56 Units/L (12-78) 09/08/21 08:39 Alkaline Phosphatase 80 Units/L (46-116) 09/08/21 08:39 Total Protein 7.5 g/dL (6.4-8.2) 09/08/21 08:39 Albumin 4.0 g/dL (3.4-5.0) 09/08/21 08:39 Globulin 3.5 g/dL (2.5-4.5) 09/08/21 08:39 Albumin/Globulin Ratio 1.1 Ratio (1.1-2.1) 09/08/21 08:39 Specimen Type Clean catch urine 09/08/21 08:29 Urine Color Straw (YELLOW) 09/08/21 08:29 Urine Appearance Clear (CLEAR) 09/08/21 08:29 Urine pH 7.0 (5.0 - 8.0) 09/08/21 08:29 Ur Specific [place] 1.010 (1.000-1.030) 09/08/21 08:29 Urine Protein Negative (NEGATIVE) 09/08/21 08:29 Urine Glucose (UA) Negative (NEGATIVE) 09/08/21 08:29 Urine Ketones Negative (NEGATIVE) 09/08/21 08:29 Urine Occult Blood Negative (NEGATIVE) 09/08/21 08:29 Urine Nitrite Negative (NEGATIVE) 09/08/21 08:29 Urine Bilirubin Negative (NEGATIVE) 09/08/21 08:29 Urine Urobilinogen Normal (NORMAL) 09/08/21 08:29 Ur Leukocyte Esterase Negative (NEGATIVE) 09/08/21 08:29 SARS CoV-2 RNA Rapid XI Negative (NEGATIVE) 09/08/21 10:35 Tissue Pathology To follow 09/08/21 16:15 Reason For Visit: RIGHT LOWER QUADRANT PAIN Discharge Date Discharge Date: 09/10/21 Discharge Diagnosis All Active Problems (Updated 09/08/21 @ 14:36 by Yadiel Mccracken) Right lower quadrant pain (Acute) Gastritis (Acute) Appendicitis (Acute) Elevated WBC count (Acute) Plan of Treatment: Continue with present treatment and follow up plan. Pt is to keep follow up appointment as instructed and take medications as ordered. Discharge Medications Discharge Medications: No Known Drug Allergies Allergy (Verified 12/19/17 11:34) CONTINUE taking the following medications dextroamphetamine-amphetamine 30 mg PO BID 09/08/21 [History] New Prescriptions oxycodone-acetaminophen [Percocet] 1 tab PO Q6H PRN #20 tab MDD 4 09/10/21 [Rx] prednisone 40 mg PO BID #20 tab 09/10/21 [Rx] Follow up and Referral Follow Up: 1 Week (Dr. MCCRACKEN) Discharge Disposition Assessment: RLQ quadrant pain improving. Encourage ambulation. Continue prednisone Discharge Disposition: STABLE Discharge Condition: DOING WELL Discharge Plan Discharge Plan Hospital Course: 26 year old male who was otherwise healthy presented with right mid abdominal pain with loose stool. CT scan consistent with possible appendicitis versus inflammatory bowel disease. Exploratory laparoscopy rebuilding clinically normal appendix with probable inflammation of the terminal ileum. No evidence of obstruction. Patient was continued on IV Solu-Medrol and fluids and transitioned to PO prednisone .He will be discharged on Prednisone 40 mg today and I will see you in one week and begin to step down the dosage. He also will be given prescription for Percocet 5 mg tablets, 1 every 6 hours PRN pain , #20 .he will follow up with me in the office in one week . Patient Disposition: 01 HOME, SELF-CARE Condition: Stable Health Concerns: Post Hospitalization: new medications and changes needed to prevent readmission or further decline. Pt educated and given instructions on all concerns. Plan of Treatment: Continue with present treatment and follow up plan. Pt is to keep follow up appointment as instructed and take medications as ordered. Assessment: RLQ quadrant pain improving. Encourage ambulation. Continue prednisone Prescriptions: New prednisone 20 mg tablet 40 mg PO BID Qty: 20 RF: 0 oxycodone-acetaminophen [Percocet] 5-325 mg tablet 1 tab PO Q6H MDD 4 PRNQty: 20 RF: 0 Continued dextroamphetamine-amphetamine 30 mg tablet 30 mg PO BID RF: 0 Orders to Discharge Patient Discharge Orders: Discharge (Routine); Ordered 09/10/21 Ordered By: Yadiel Mccracken Follow ups/Referrals Follow ups/Referrals: BRIAN SHELTON [Primary Care Provider] - 3 days Instructions Instructions: Laparoscopic Appendectomy, Adult, Care After, [id number] Stand Alone Forms: Excuse From Work or School, Precautions for COVID, [facility], Patient Portal, Social Distancing
[2021-09-10 12:48] VITALS: BP 148/66
== END 2021-09-10 14:30 | disposition home or self-care (01) ==
LOC: ER 08:13 → MED/SURG 08:13
PROVIDERS: ADMIT Surgery; ATTEND Surgery
PROC: APPYLAP (ICD-10-PCS; 2021-09-08 15:15)